=== PATIENT | male | born 1985 | race Caucasian/White ===

== ENCOUNTER 2016-11-14 14:05 | Emergency (ER) | payer OTHER ==
[2016-11-14 15:06] VITALS: BP 149/104
--- NOTE | 2016-11-14 19:25 | Emergency Department Report ---
ED General Adult HPI - General Chief complaint: Rectal Pain Stated complaint: RECTAL PAIN Time Seen by Provider: 11/14/16 19:07 Source: patient Mode of arrival: Ambulatory Limitations: Language Barrier - History of Present Illness Initial comments: This is a 30-year-old male that presents with rectal pain for the past 2-3 weeks. Patient stated feeling of a burning sensation. Denies any trauma, bleeding, urinary symptoms, constipation, abdominal pain, nausea or vomiting. Patient stated his symptoms come and go from time to time for the past 2 weeks. Patient has positive symptoms including burning sensation. Patient agrees to sweat a lot in the rectal and penile area. Patient does not seem toxic or ill in appearance. No signs of any distress noted. Patient denies any medical history or allergies. Patient denies hx of rectal cancer or prostate history. At this time the patient denies symptoms. Stated has no symptoms this time but thinks it will come back tomorrow. Patient denies sexual activity in the rectal area. Patient state is a heterosexual. MD Complaint: rectal pain -: Gradual, week(s) (2-3) Radiation: non-radiation Severity scale (0 -10): 0 Quality: burning Consistency: constant Improves with: other (washing area with cold water ) Worsens with: movement Associated Symptoms: denies other symptoms. denies: confusion, chest pain, cough, diaphoresis, fever/chills, headaches, loss of appetite, malaise, nausea/ vomiting, rash, seizure, shortness of breath, syncope, weakness Treatments Prior to Arrival: none - Related Data Home Medications Medication Instructions Recorded Confirmed Last Taken No Known Home Medications [No 11/14/16 11/14/16 Unknown Reported Home Medications] Allergies Allergy/AdvReac Type Severity Reaction Status Date / Time No Known Allergies Allergy Verified 11/14/16 15:07 ED Review of Systems ROS: Stated complaint: RECTAL PAIN Other details as noted in HPI Constitutional: denies: chills, fever Eyes: denies: eye pain, eye discharge, vision change ENT: denies: ear pain, throat pain Respiratory: denies: cough, shortness of breath, wheezing Cardiovascular: denies: chest pain, palpitations Endocrine: no symptoms reported Gastrointestinal: denies: abdominal pain, nausea, diarrhea Genitourinary: denies: urgency, dysuria Musculoskeletal: denies: back pain, joint swelling, arthralgia Skin: denies: rash, lesions Neurological: denies: headache, weakness, paresthesias Psychiatric: denies: anxiety, depression Hematological/Lymphatic: denies: easy bleeding, easy bruising ED Past Medical Hx - Past Medical History Previous Medical History?: No - Surgical History Past Surgical History?: No - Social History Smoking Status: Never Smoker Substance Use Type: None - Medications Home Medications: Home Medications Medication Instructions Recorded Confirmed Last Taken Type No Known Home Medications [No 11/14/16 11/14/16 Unknown History Reported Home Medications] ED Physical Exam - General Limitations: Language Barrier General appearance: alert, in no apparent distress - Head Head exam: Present: atraumatic, normocephalic - Eye Eye exam: Present: normal appearance - ENT ENT exam: Present: mucous membranes moist - Neck Neck exam: Present: normal inspection - Respiratory Respiratory exam: Present: normal lung sounds bilaterally. Absent: respiratory distress - Cardiovascular Cardiovascular Exam: Present: regular rate, normal rhythm. Absent: systolic murmur, diastolic murmur, rubs, gallop - GI/Abdominal GI/Abdominal exam: Present: soft, normal bowel sounds - Rectal Rectal exam: Present: deferred, normal inspection, normal prostate. Absent: decreased rectal tone, heme (-) stool, heme (+) stool, black stool, bloody stool , fecal impaction, hemorrhoids, mass, tenderness, prostate tenderness, prostate enlargement, other (Digital rectal exam showed no stool blood, no rectal blood, and no fecal occult blood on card.) - exam: Present: normal inspection. Absent: testicular tenderness, urethral discharge, scrotal swelling, vertical testicular lie External exam: Present: erythema (near rectal area). Absent: swelling, lesions , lacerations, ecchymosis, bleeding - Extremities Exam Extremities exam: Present: normal inspection, full ROM, normal capillary refill - Back Exam Back exam: Present: normal inspection, full ROM. Absent: tenderness, CVA tenderness (R), CVA tenderness (L) - Neurological Exam Neurological exam: Present: alert, oriented X3, CN II-XII intact, normal gait - Psychiatric Psychiatric exam: Present: normal affect, normal mood - Skin Skin exam: Present: warm, dry, intact, normal color. Absent: rash - Other Other exam information: No rectal swelling. Slightly erythematous in the rectal area. Negative prostate enlargement. No prostate tenderness. No rectal foreign body. ED Course Vital Signs 11/14/16 14:59 Temperature 98.3 F Pulse Rate 74 Respiratory 16 Rate Blood Pressure 149/104 O2 Sat by Pulse 96 Oximetry ED Medical Decision Making - Medical Decision Making Ed course: This is a 31-year-old patient that presents with erythema/pain in the rectal area. 1- Patient denies symptoms of these in this visit. 2- patient agrees to sweating in the area while working and walking 3- I instructed the patient to follow-up with his primary care doctor in 3-5 days for symptoms worsen or continue due to more studies 4- I instructed the patient to keep rectal area dry and clean. I also instructed patient to by OTC baby powered and apply to area as much as need. 5- discharge the patient is not toxic or ill in appearance. Patient is to follow-up with his primary care doctor in 3-5 days for those symptoms be continued. At the time of discharge the patient has no further questions noted. 6- Patient was also instrcuted to perform sitz bath to reduce pain/redness symptoms 7- Digital rectal exam showed no stool blood, no rectal blood, and no fecal occult blood on card. Critical care attestation.: If time is entered above; I have spent that time in minutes in the direct care of this critically ill patient, excluding procedure time. ED Disposition Clinical Impression: Rectal pain Disposition: DISCHARGED TO HOME OR SELFCARE Is pt being admited?: No Does the pt Need Aspirin: No Condition: Stable Instructions: Sitz Bath (GEN) Additional Instructions: Please follow-up withy your primary care doctor in 3-5 days. If symptoms worsen, report back to emergency room Referrals: PRIMARY EULALIA, [Primary Care Provider] - 3-5 Days VIJAY OSUNA MD [Referring] - 3-5 Days AYESHA MOSHER MD [Referring] - 3-5 Days LUIS MCKOY MD [Referring] - 3-5 Days KENYA MONTANA MD [Referring] - 3-5 Days [facility] [Outside] - 3-5 Days [facility] [place] [facility] [place] - 3-5 Days Forms: Work/School Release Form(ED)
== END 2016-11-14 22:20 | disposition home or self-care (01) ==
LOC: EDBD → ED 14:05
DX: K62.89 Other specified diseases of anus and rectum (principal)
CPT/HCPCS: 99282